=== PATIENT | female | born 1940 | race Caucasian/White ===

== ENCOUNTER 2018-08-03 01:01 | Inpatient (IN) | payer MEDICARE, OTHER ==
[~2018-08-03] VITALS: Ht 152.4 cm; Wt 58.6 kg
[2018-08-03 04:27] LABS: BASOPHILS % 0.4 % (0.0-2.0); CHLORIDE 107 mEq/L (98-107); EOSINOPHILS % 0.8 % (0.0-5.0); HEMATOCRIT. 36.6 % (36.0-48.0); HEMOGLOBIN. 12.2 g/dL (12.0-16.0); LYMPHOCYTES % 18.3 % (20.0-50.0); MEAN CORPUSCULAR HEMOGLOBIN 30.1 pg (28.0-32.0); MEAN CORPUSCULAR VOLUME 90.1 fL (81.0-99.0); MEAN PLATELET VOLUME 8.8 fl (7.4-10.4); MONOCYTES % 9.5 % (2.0-8.0); PLATELET 173 x1000/uL (130-400); RED BLOOD CELL COUNT 4.06 mill/uL (4.2-5.4); RED CELL DISTRIBUTION WIDTH 13.3 % (11.6-14.6)
[2018-08-03 04:38] LABS: CLARITY URINE CLEAR (CLEAR); COLOR URINE YELLOW (YELLOW); KETONES URINE NEGATIVE (NEGATIVE); LEUKOCYTE ESTERASE URINE 1+ (NEGATIVE); NITRITE URINE POSITIVE (NEGATIVE); OCCULT BLOOD URINE TRACE (NEGATIVE); PROTEIN URINE NEGATIVE (NEGATIVE); SPECIFIC GRAVITY URINE 1.014 (1.005-1.030); UROBILINOGEN URINE 0.2 E.U./dL (0.2-1.0)
[2018-08-03] MEDS ORDERED: ASPIRIN 81MG TABLET PO ONE (05:15)
[2018-08-03] MEDS ORDERED: METOPROLOL TARTRATE 50MG TABLET PO ONE (05:15)
[2018-08-03] MEDS ORDERED: METOPROLOL TARTRATE 25MG TABLET PO NR (05:30)
[2018-08-03] MEDS ORDERED: ASPIRIN 81MG TABLET PO NR (05:30)
[2018-08-03] MEDS ORDERED: ACETAMINOPHEN 325MG TABLET PO PRN (06:15)
[2018-08-03] MEDS ORDERED: CEFTRIAXONE 1 G PREMIX 50 ML IV ONE (06:15)
[2018-08-03 09:30] VITALS: BP 159/86
[2018-08-03] MEDS ORDERED: NITROGLYCERIN 0.4MG TABLET SL SL PRN (10:15)
[2018-08-03] MEDS ORDERED: ONDANSETRON HCL 4MG/2ML INJ IV PRN (10:15)
[2018-08-03] MEDS ORDERED: MORPHINE SULFATE 2 MG/ML CPJ (NOT FOR IM USE) IV PRN (10:15)
[2018-08-03] MEDS ORDERED: IPRATROPIUM/ALBUTEROL 0.5-3(2.5)MG/3ML NEB INH PRN (10:15)
[2018-08-03] MEDS ORDERED: DIPHENHYDRAMINE 50MG/ML VIAL IV PRN (10:15)
[2018-08-03 11:03] LABS: BG BASE EXCESS 1.3 mmol/L (-2.0-2.0); BG CARBOXYHEMOGLOBIN 0.3 % (0.5-1.5); BG DEOXYHEMOGLOBIN 1.7 % (0.0-5.0); BG FRACTION INSPIRED OXYGEN 26; BG HCO3 ACT 25.5 mmol/L (22.0-26.0); BG METHEMOGLOBIN 0.2 % (0.0-1.5); BG OXYGEN SATURATION 98.3 % (92.0-98.5); BG OXYHEMOGLOBIN 97.8 % (94.0-97.0); BG PH 7.433 (7.350-7.450); BG PO2 121.7 mmHg (75.0-100.0); BG SAMPLE SITE LEFT BRACHIAL; BG TOTAL HEMOGLOBIN 12.4 g/dL (12.0-18.0); BG VENT MODE NASAL CANNULA
[2018-08-03] MEDS ORDERED: CLONIDINE 0.1MG TABLET PO PRN (14:15)
[2018-08-03] MEDS ORDERED: CARVEDILOL 3.125 MG TABLET PO NR (14:15)
[2018-08-03 14:25] VITALS: BP 148/77
[2018-08-03] MEDS: ENOXAPARIN 40MG/0.4ML SYR SUBCUT SCH (15:00)
[2018-08-03 16:43] VITALS: BP 124/75
[2018-08-03 17:37] LABS: CREATINE KINASE MB FRACTION 4.7 ng/mL (0.5-3.6)
[2018-08-03] MEDS ORDERED: mvi PO (18:01)
[2018-08-03] MEDS ORDERED: ASPI-1393 PO (18:01)
[2018-08-03] MEDS: ATORVASTATIN CALCIUM 20MG TABLET PO SCH (21:27)
[2018-08-03] MEDS: CARVEDILOL 3.125 MG TABLET PO SCH (21:28)
[2018-08-03] MEDS: AMLODIPINE 5MG TABLET PO SCH (21:28)
[2018-08-04] VITALS (9 sets, daily range): BP systolic 118–152; BP diastolic 51–90
[2018-08-04 00:28] LABS: CREATINE KINASE MB FRACTION 3.8 ng/mL (0.5-3.6)
[2018-08-04 02:50] LABS: *AMPHETAMINES SCREEN URINE NEGATIVE (NEGATIVE); CANNABINOID URINE SCREEN NEGATIVE (NEGATIVE); PHENCYCLIDINE URINE SCREEN NEGATIVE (NEGATIVE)
[2018-08-04 02:51] LABS: *BARBITURATES SCREEN URINE NEGATIVE (NEGATIVE); *BENZODIAZEPINES SCREEN URINE NEGATIVE (NEGATIVE); *COCAINE SCREEN URINE NEGATIVE (NEGATIVE); METHADONE URINE SCREEN NEGATIVE (NEGATIVE); OPIATES URINE SCREEN NEGATIVE (NEGATIVE)
[2018-08-04] MEDS: CEFTRIAXONE 1 G PREMIX 50 ML IV SCH (04:34)
[2018-08-04 06:31] LABS: CHLORIDE 107 mEq/L (98-107)
[2018-08-04 06:43] LABS: LDL CHOLESTEROL 72 mg/dL (5-100)
[2018-08-04 06:44] LABS: T4 FREE 0.96 ng/dL (0.76-1.46)
[2018-08-04 06:50] LABS: HDL CHOLESTEROL 43 mg/dL (40-59)
[2018-08-04 06:59] LABS: BASOPHILS % 0.5 % (0.0-2.0); EOSINOPHILS % 4.2 % (0.0-5.0); HEMOGLOBIN. 11.9 g/dL (12.0-16.0); LYMPHOCYTES % 28.4 % (20.0-50.0); MEAN CORPUSCULAR HEMOGLOBIN 30.6 pg (28.0-32.0); MEAN CORPUSCULAR VOLUME 89.7 fL (81.0-99.0); MEAN PLATELET VOLUME 9.2 fl (7.4-10.4); MONOCYTES % 9.9 % (2.0-8.0); PLATELET 175 x1000/uL (130-400); RED BLOOD CELL COUNT 3.91 mill/uL (4.2-5.4); RED CELL DISTRIBUTION WIDTH 13.3 % (11.6-14.6)
[2018-08-04] MEDS: AMLODIPINE 5MG TABLET PO SCH ×2 (09:00→22:02)
[2018-08-04] MEDS: ENOXAPARIN 40MG/0.4ML SYR SUBCUT SCH (09:00)
[2018-08-04] MEDS ORDERED: ASPIRIN 81MG EC TABLET PO SCH (09:00)
[2018-08-04] MEDS: CARVEDILOL 3.125 MG TABLET PO SCH ×2 (09:01→22:02)
[2018-08-04] MEDS ORDERED: IOHEXOL-300 100 ML BOTTLE ONE ×3 (11:11→12:22)
[2018-08-04] MEDS ORDERED: LIDOCAINE HCL 1% 20ML VIAL (Pyxis) INJ ONE (11:11)
[2018-08-04] MEDS ORDERED: FENTANYL CITRATE/PF 50MCG/ML 2ML VIAL ONE (11:21)
[2018-08-04] MEDS ORDERED: MIDAZOLAM HCL 2 MG/2 ML VIAL ONE (11:21)
[2018-08-04] MEDS ORDERED: ATROPINE SULFATE 1MG/10ML SYR IV PRN (12:45)
[2018-08-04] MEDS ORDERED: ACETAMINOPHEN 325MG TABLET PO PRN (12:45)
[2018-08-04] MEDS ORDERED: CLOPIDOGREL 75MG TABLET ONE (13:01)
[2018-08-04] MEDS ORDERED: ASPIRIN 325MG EC TABLET PO ONE (13:02)
[2018-08-04] MEDS ORDERED: HEPARIN SODIUM 1,000 UNIT/1ML VIAL IV ONE (19:43)
[2018-08-04] MEDS ORDERED: NITROGLYCERIN 50MCG/ML 10ML VIAL (CATH LAB) IV ONE (19:43)
[2018-08-04] MEDS ORDERED: PHENYLEPHRINE 100MCG/ML 10ML VIAL (CATH LAB) IV ONE (19:43)
[2018-08-04] MEDS ORDERED: NICARDIPINE 100MCG/ML 10ML VIAL (CATH LAB) IV ONE (19:43)
[2018-08-04] MEDS: ATORVASTATIN CALCIUM 20MG TABLET PO SCH (22:02)
[2018-08-05] VITALS: BP 136/67
[2018-08-05 02:00] VITALS: BP 124/69
[2018-08-05 04:00] VITALS: BP 130/74
[2018-08-05] MEDS: CEFTRIAXONE 1 G PREMIX 50 ML IV SCH (05:52)
[2018-08-05 06:00] VITALS: BP 132/66
[2018-08-05 06:07] LABS: BASOPHILS % 0.3 % (0.0-2.0); EOSINOPHILS % 4.3 % (0.0-5.0); HEMOGLOBIN. 11.8 g/dL (12.0-16.0); LYMPHOCYTES % 28.8 % (20.0-50.0); MEAN CORPUSCULAR VOLUME 89.2 fL (81.0-99.0); MEAN PLATELET VOLUME 9.1 fl (7.4-10.4); MONOCYTES % 11.9 % (2.0-8.0); NEUTROPHILS % 54.7 % (40.0-76.0); PLATELET 185 x1000/uL (130-400); RED BLOOD CELL COUNT 3.92 mill/uL (4.2-5.4); RED CELL DISTRIBUTION WIDTH 13.4 % (11.6-14.6)
[2018-08-05 06:11] LABS: CHLORIDE 106 mEq/L (98-107)
[2018-08-05 08:00] VITALS: BP 129/69
[2018-08-05] MEDS: AMLODIPINE 5MG TABLET PO SCH (08:50)
[2018-08-05] MEDS: CARVEDILOL 3.125 MG TABLET PO SCH (08:51)
[2018-08-05] MEDS ORDERED: CLOPIDOGREL 75MG TABLET PO SCH (09:00)
[2018-08-05] MEDS ORDERED: ASPIRIN 325MG TABLET PO SCH (09:00)
[2018-08-05 10:04] VITALS: BP 111/52
== END 2018-08-05 10:56 | disposition home or self-care (01) | DRG 247 ==
LOC: ER 01:45 → 8WST 06:15 → ENRESERV 07:42 → 3WST 08-04 13:44
PROVIDERS: ADMIT Internal Medicine; ATTEND Internal Medicine
PROC: 027034Z Dilation of Coronary Artery, One Artery with Drug-eluting Intraluminal Device, Percutaneous Approach (ICD-10-PCS; principal; 2018-08-04)
PROC: 4A023N7 Measurement of Cardiac Sampling and Pressure, Left Heart, Percutaneous Approach (ICD-10-PCS; 2018-08-04)
PROC: B2111ZZ Fluoroscopy of Multiple Coronary Arteries using Low Osmolar Contrast (ICD-10-PCS; 2018-08-04)
DX: I21.4 Non-ST elevation (NSTEMI) myocardial infarction (principal); N39.0 Urinary tract infection, site not specified; I42.8 Other cardiomyopathies; R06.03 Acute respiratory distress; I16.0 Hypertensive urgency; I10 Essential (primary) hypertension; E66.9 Obesity, unspecified; R79.89 Other specified abnormal findings of blood chemistry; I45.81 Long QT syndrome; I34.0 Nonrheumatic mitral (valve) insufficiency; E78.5 Hyperlipidemia, unspecified; F41.9 Anxiety disorder, unspecified; Z68.25 Body mass index [BMI] 25.0-25.9, adult; Z79.899 Other long term (current) drug therapy
CPT/HCPCS: 36415; 36600; 71045; 80048; 80061; 80305; 81003; 82375; 82550; 82553; 82805; 84439; 84443; 84484; 85347; 85379; 87077; 87186; 92928; 93005; 93306; 93454; 96374; 99285; C1725; C1760; C1769; C1874; C1887; C1893; J0696; J1644; J1650; J2250; J2370; J3010; J3490; J7040; J7050; Q9967